=== PATIENT | female | born 1965 | race Caucasian/White ===

== ENCOUNTER → 2018-08-18 17:38 | Outpatient (CLI) | payer OTHER ==
[2014-08-05 05:55] VITALS: BMI 21.1
[~2018-08-18 17:38] MED LIST: HYDROCODONE-APA1 TAB PO; MULTIPLE VITAMI1 TA1 PO
== END | disposition home or self-care (01) ==
LOC: D.MAMMO 13:00
DX: R92.8 Other abnormal and inconclusive findings on diagnostic imaging of breast (principal)